=== PATIENT | male | born 1975 | race Caucasian/White ===

== ENCOUNTER 2017-06-21 14:37 | Emergency (ER) | payer BC ==
--- NOTE | 2017-06-21 15:57 | ER Document Report ---
ED Medical Screen (RME) - General Chief Complaint: Chest Pain Stated Complaint: CHEST PAIN Time Seen by Provider: 06/21/17 15:45 Mode of Arrival: Ambulatory Information source: Patient Notes: 41-year-old male resents with complaints of chest pressure sensation of now 1-2 hour duration. Patient denies any previous similar episodes notes tingling sensation in the hands. Denies any diaphoresis. Patient denies any previous similar chest pain I have greeted and performed a rapid initial assessment of this patient. A comprehensive ED assessment and evaluation of the patient, analysis of test results and completion of the medical decision making process will be conducted by additional ED providers. PHYSICAL EXAMINATION: GENERAL: Morbidly obese male HEAD: Atraumatic, normocephalic. EYES: Pupils equal round extraocular movements intact, conjunctiva are normal. ENT: Nares patent NECK: Normal range of motion LUNGS: No respiratory distress Musculoskeletal: Normal range of motion NEUROLOGICAL: Normal speech, normal gait. PSYCH: Normal mood, normal affect. SKIN: Warm, Dry, normal turgor, no rashes or lesions noted. TRAVEL OUTSIDE OF THE [place] IN LAST 30 DAYS: No - Related Data Allergies/Adverse Reactions: No Known Allergies Allergy (Verified 06/21/17 15:53) Past Medical History - Social History Chew tobacco use (# tins/day): No Frequency of alcohol use: None Drug Abuse: None Renal/ Medical History: Denies: Hx Peritoneal Dialysis Physical Exam - Vital signs Vitals: Temp Pulse Resp BP Pulse Ox 97.9 F 88 18 136/86 H 97 06/21/17 14:48 06/21/17 14:48 06/21/17 14:48 06/21/17 14:48 06/21/17 14:48 Course - Vital Signs Vital signs: Temp Pulse Resp BP Pulse Ox 97.9 F 88 18 136/86 H 97 06/21/17 14:48 06/21/17 14:48 06/21/17 14:48 06/21/17 14:48 06/21/17 14:48
[2017-06-21] MEDS ORDERED: ASPIRIN 81 MG TABLET, CHEWABLE PO ONE (16:26)
[2017-06-21 16:52] LABS: ABSOLUTE BASOPHILS # (AUTO) 0.1 10^3/uL (0.0-0.2); ABSOLUTE EOSINOPHILS # (AUTO) 0.2 10^3/uL (0.0-0.6); ABSOLUTE LYMPHOCYTES (AUTO) 2.7 10^3/uL (0.5-4.7); ABSOLUTE MONOCYTES (AUTO) 0.7 10^3/uL (0.1-1.4); ABSOLUTE NEUT (AUTO) 6.9 10^3/uL (1.7-8.2); BASOPHILS % (AUTO) 1.1 % (0-2); EOSINOPHILS % (AUTO) 1.9 % (0-6); HEMATOCRIT 45.3 % (37.9-51.0); HEMOGLOBIN 15.2 g/dL (13.5-17.0); LYMPHOCYTES % (AUTO) 25.4 % (13-45); MEAN CORPUSCULAR HEMOGLOBIN 29.4 pg (27.0-33.4); MEAN CORPUSCULAR HGB CONC 33.5 g/dL (32.0-36.0); MEAN CORPUSCULAR VOLUME 88 fl (80-97); MONOCYTES % (AUTO) 6.5 % (3-13); PLATELET COUNT 285 10^3/uL (150-450); RED BLOOD COUNT 5.15 10^6/uL (4.35-5.55); SEGMENTED NEUTROPHILS % (AUTO) 65.1 % (42-78); TOTAL CELLS COUNTED % (AUTO) 100 %; WHITE BLOOD COUNT 10.6 10^3/uL (4.0-10.5)
[2017-06-21 17:06] LABS: ALANINE AMINOTRANSFERASE 36 U/L (21-72); ALBUMIN 3.9 g/dL (3.5-5.0); ALKALINE PHOSPHATASE 77 U/L (38-126); ANION GAP 8 (5-19); ASPARTATE AMINO TRANSFERASE 20 U/L (17-59); BILIRUBIN,DIRECT 0.2 mg/dL (0.0-0.4); BILIRUBIN,TOTAL 0.2 mg/dL (0.2-1.3); BLOOD UREA NITROGEN 11 mg/dL (7-20); CALCIUM 9.3 mg/dL (8.4-10.2); CARBON DIOXIDE 24 mmol/L (22-30); CHLORIDE 109 mmol/L (98-107); CREATINE KINASE 93 U/L (55-170); GLUCOSE 81 mg/dL (75-110); POTASSIUM 4.4 mmol/L (3.6-5.0); SODIUM 140.6 mmol/L (137-145); TOTAL PROTEIN 7.2 g/dL (6.3-8.2)
[2017-06-21 17:17] LABS: CREATINE KINASE MB 0.54 ng/mL (<4.55); TROPONIN I < 0.012 ng/mL
--- NOTE | 2017-06-21 17:27 | RADIOLOGY REPORT (SQ) ---
EXAM DESCRIPTION: CHEST SINGLE VIEW COMPLETED DATE/TIME: 06/21/2017 5:19 pm REASON FOR STUDY: chest pain COMPARISON: None. EXAM PARAMETERS: NUMBER OF VIEWS: One view. TECHNIQUE: Single frontal radiographic view of the chest acquired. RADIATION DOSE: NA LIMITATIONS: None. FINDINGS: LUNGS AND PLEURA: No opacities, masses or pneumothorax. No pleural effusion. MEDIASTINUM AND HILAR STRUCTURES: No masses. Contour normal. HEART AND VASCULAR STRUCTURES: Heart normal in size. Normal vasculature. BONES: No acute findings. HARDWARE: None in the chest. OTHER: No other significant finding. IMPRESSION: NO ACUTE RADIOGRAPHIC FINDING IN THE CHEST. TECHNICAL DOCUMENTATION: JOB ID: [id number] [employer]- All Rights Reserved Reading location - IP/workstation name: [email or web address]
[2017-06-21] MEDS ORDERED: NITROGLYCERIN 0.4 MG/TAB 25 TAB/BOTTLE SL PRN (18:24)
--- NOTE | 2017-06-21 18:28 | ER Document Report ---
ED General - General Chief Complaint: Chest Pain Stated Complaint: CHEST PAIN Time Seen by Provider: 06/21/17 15:45 Mode of Arrival: Ambulatory Information source: Patient, Relative Notes: 41-year-old male with no reported past medical history presents with complaints of chest pain that started 5 hours prior to arrival. Patient states that he was at work and went outside to smoke when he experienced "crushing" chest pain. Patient states he had associated left hand "tingling" . He denies any associated shortness of breath, diaphoresis, nausea, lightheadedness. He denies any prior similar symptoms. Patient does have a [id number] smoking history and states he now "vapes". Denies any recent illnesses. He is not currently under any medical care. Pain is been constant since that time and is still present, but improved. Denies family history of early cardiac disease. TRAVEL OUTSIDE OF THE [place] IN LAST 30 DAYS: No - HPI Onset: Just prior to arrival Onset/Duration: Sudden Quality of pain: Fullness, Pressure, Other Severity: Moderate Associated symptoms: Chest pain. denies: Hurts to breath, Nausea, Vomiting, Shortness of breath, Weakness Exacerbated by: Denies Relieved by: Denies Similar symptoms previously: No Recently seen / treated by doctor: No - Related Data Allergies/Adverse Reactions: No Known Allergies Allergy (Verified 06/21/17 15:53) Past Medical History - General Information source: Patient - Social History Smoking Status: Current Every Day Smoker Chew tobacco use (# tins/day): No Frequency of alcohol use: None Drug Abuse: None Lives with: Spouse/Significant other Family History: Reviewed & Not Pertinent Patient has suicidal ideation: No Patient has homicidal ideation: No Renal/ Medical History: Denies: Hx Peritoneal Dialysis Review of Systems - Review of Systems Notes: Patient denies fever, chills, nausea, vomiting, abdominal pain, back pain, diarrhea, dysuria, cough, sore throat, extremity weakness. He does admit to chest pain. Constitutional: denies: Fever, Weakness EENT: denies: Blurred vision Cardiovascular: Chest pain. denies: Palpitations, Heart racing Respiratory: denies: Short of breath Gastrointestinal: denies: Abdominal pain Genitourinary: denies: Dysuria Musculoskeletal: denies: Back pain Skin: No symptoms reported Hematologic/Lymphatic: No symptoms reported Neurological/Psychological: denies: No symptoms reported Physical Exam - Vital signs Vitals: Temp Pulse Resp BP Pulse Ox 97.9 F 88 18 136/86 H 97 06/21/17 14:48 06/21/17 14:48 06/21/17 14:48 06/21/17 14:48 06/21/17 14:48 Interpretation: Normal. No: Tachycardic, Tachypneic, Febrile - General General appearance: Appears well, Alert In distress: None - HEENT Head: Normocephalic, Atraumatic Eyes: Normal Pupils: PERRL - Respiratory Respiratory status: No respiratory distress - Clear to auscultation bilaterally. Chest status: Nontender Breath sounds: Normal Chest palpation: Normal - Cardiovascular Rhythm: Regular - Regular rate and rhythm without murmur. Heart sounds: Normal auscultation Murmur: No Pulses: Normal: Radial - Abdominal Inspection: Normal - Nontender, normal bowel sounds. Distension: No distension Bowel sounds: Normal Tenderness: Nontender Organomegaly: No organomegaly - Back Back: Normal, Nontender - Extremities General upper extremity: Normal inspection, Nontender, Normal color, Normal ROM , Normal temperature General lower extremity: Normal inspection, Nontender, Normal color, Normal ROM , Normal temperature, Normal weight bearing. No: Olamide's sign Course - Re-evaluation Re-evalutation: Laboratory 06/21/17 06/21/17 06/21/17 16:23 16:23 16:23 WBC 10.6 H RBC 5.15 Hgb 15.2 Hct 45.3 MCV 88 MCH 29.4 MCHC 33.5 RDW 14.0 Plt Count 285 Seg Neutrophils % 65.1 Lymphocytes % 25.4 Monocytes % 6.5 Eosinophils % 1.9 Basophils % 1.1 Absolute Neutrophils 6.9 Absolute Lymphocytes 2.7 Absolute Monocytes 0.7 Absolute Eosinophils 0.2 Absolute Basophils 0.1 Sodium 140.6 Potassium 4.4 Chloride 109 H Carbon Dioxide 24 Anion Gap 8 BUN 11 Creatinine 0.57 Est GFR ( Amer) > 60 Est GFR (Non-Af Amer) > 60 Glucose 81 Calcium 9.3 Total Bilirubin 0.2 Direct Bilirubin 0.2 Neonat Total Bilirubin Not Reportable Neonat Direct Bilirubin Not Reportable Neonat Indirect Bili Not Reportable AST 20 ALT 36 Alkaline Phosphatase 77 Creatine Kinase 93 CK-MB (CK-2) 0.54 Troponin I < 0.012 Total Protein 7.2 Albumin 3.9 06/21/17 20:20 WBC RBC Hgb Hct MCV MCH MCHC RDW Plt Count Seg Neutrophils % Lymphocytes % Monocytes % Eosinophils % Basophils % Absolute Neutrophils Absolute Lymphocytes Absolute Monocytes Absolute Eosinophils Absolute Basophils Sodium Potassium Chloride Carbon Dioxide Anion Gap BUN Creatinine Est GFR ( Amer) Est GFR (Non-Af Amer) Glucose Calcium Total Bilirubin Direct Bilirubin Neonat Total Bilirubin Neonat Direct Bilirubin Neonat Indirect Bili AST ALT Alkaline Phosphatase Creatine Kinase CK-MB (CK-2) Troponin I < 0.012 Total Protein Albumin Chest X-Ray 06/21/17 16:26 IMPRESSION: NO ACUTE RADIOGRAPHIC FINDING IN THE CHEST. 06/21/17 21:14 Reevaluation patient states pain is gone. Not had any recurrence of pain. Delta troponin is negative. He And are comfortable with discharge home. After performing a Medical Screening Examination, I estimate there is LOW risk for RUPTURED ESOPHAGUS, PNEUMOTHORAX, PULMONARY EMBOLISM, ACUTE CORONARY SYNDROME, OR THORACIC AORTIC DISSECTION, thus I consider the discharge disposition reasonable. I have reevaluated this patient multiple times and no significant life threatening changes are noted. The patient and I have discussed the diagnosis and risks, and we agree with discharging home with close follow-up. We also discussed returning to the Emergency Department immediately if new or worsening symptoms occur. We have discussed the symptoms which are most concerning (e.g., bloody sputum, worsening pain or shortness of breath) that necessitate immediate return. 06/22/17 17:01 - Vital Signs Vital signs: Temp Pulse Resp BP Pulse Ox 97.9 F 88 20 123/94 H 95 06/21/17 20:45 06/21/17 14:48 06/21/17 21:01 06/21/17 21:01 06/21/17 21:01 - Laboratory Result Diagrams: 06/21/17 16:23 06/21/17 16:23 Laboratory results interpreted by me: 06/21/17 06/21/17 16:23 16:23 WBC 10.6 H Chloride 109 H - Diagnostic Test Radiology reviewed: Image reviewed, Reports reviewed - EKG Interpretation by Me EKG shows normal: Sinus rhythm Rate: Normal Rhythm: NSR Discharge - Discharge Clinical Impression: Tobacco abuse Chest pain Qualifiers: Chest pain type: unspecified Qualified Code(s): R07.9 - Chest pain, unspecified Condition: Good Disposition: HOME, SELF-CARE Instructions: Angina Episode ([facility]), Chest Pain of Unclear Cause ([facility]), Nitrates ([facility]) Forms: Smoking Cessation Education
--- NOTE | 2017-06-21 18:45 | EKG REPORT ---
SEVERITY:- NORMAL ECG - SINUS RHYTHM : Confirmed by: Ander Catherine MD 21-Jun-2017 18:44:55
[2017-06-21 21:07] VITALS: BP 123/94
== END 2017-06-21 21:33 | disposition home or self-care (01) ==
LOC: ER 14:37
DX: R07.9 Chest pain, unspecified (principal); R20.0 Anesthesia of skin; F17.200 Nicotine dependence, unspecified, uncomplicated
CPT/HCPCS: 36415; 71045; 80053; 82550; 82553; 84484; 85025; 93005; 93010; 99285

== ENCOUNTER 2017-12-13 07:44 | Emergency (ER) | payer BC ==
[2017-12-13 08:37] LABS: ABSOLUTE BASOPHILS # (AUTO) 0.1 10^3/uL (0.0-0.2); ABSOLUTE EOSINOPHILS # (AUTO) 0.1 10^3/uL (0.0-0.6); ABSOLUTE LYMPHOCYTES (AUTO) 1.7 10^3/uL (0.5-4.7); ABSOLUTE MONOCYTES (AUTO) 0.5 10^3/uL (0.1-1.4); ABSOLUTE NEUT (AUTO) 5.3 10^3/uL (1.7-8.2); EOSINOPHILS % (AUTO) 1.3 % (0-6); HEMATOCRIT 43.1 % (37.9-51.0); HEMOGLOBIN 14.8 g/dL (13.5-17.0); LYMPHOCYTES % (AUTO) 22.2 % (13-45); MEAN CORPUSCULAR HEMOGLOBIN 29.8 pg (27.0-33.4); MEAN CORPUSCULAR HGB CONC 34.4 g/dL (32.0-36.0); MEAN CORPUSCULAR VOLUME 87 fl (80-97); MONOCYTES % (AUTO) 6.2 % (3-13); PLATELET COUNT 241 10^3/uL (150-450); RED BLOOD COUNT 4.98 10^6/uL (4.35-5.55); RED CELL DISTRIBUTION WIDTH 14.3 % (11.5-14.0); SEGMENTED NEUTROPHILS % (AUTO) 69.3 % (42-78); TOTAL CELLS COUNTED % (AUTO) 100 %; WHITE BLOOD COUNT 7.7 10^3/uL (4.0-10.5)
[2017-12-13] MEDS ORDERED: ASPIRIN 81 MG TABLET, CHEWABLE PO ONE (08:54)
[2017-12-13 09:00] LABS: ALANINE AMINOTRANSFERASE 54 U/L (21-72); ALBUMIN 3.7 g/dL (3.5-5.0); ALKALINE PHOSPHATASE 70 U/L (38-126); ANION GAP 7 (5-19); ASPARTATE AMINO TRANSFERASE 33 U/L (17-59); BILIRUBIN,DIRECT 0.3 mg/dL (0.0-0.4); BILIRUBIN,TOTAL 0.7 mg/dL (0.2-1.3); BLOOD UREA NITROGEN 12 mg/dL (7-20); CALCIUM 9.4 mg/dL (8.4-10.2); CARBON DIOXIDE 28 mmol/L (22-30); CHLORIDE 106 mmol/L (98-107); CREATINE KINASE 138 U/L (55-170); GLUCOSE 106 mg/dL (75-110); POTASSIUM 5.1 mmol/L (3.6-5.0); SODIUM 141.3 mmol/L (137-145); TOTAL PROTEIN 7.1 g/dL (6.3-8.2)
[2017-12-13 09:12] LABS: CREATINE KINASE MB 0.75 ng/mL (<4.55)
[2017-12-13 09:13] LABS: TROPONIN I < 0.012 ng/mL
[2017-12-13 09:19] LABS: INTERNATIONAL RATION (INR) 0.94; PROTHROMBIN TIME 13.1 SEC (11.4-15.4)
[2017-12-13 09:20] LABS: PARTIAL THROMBOPLASTIN TIME 31.2 SEC (23.5-35.8)
[2017-12-13 09:22] LABS: D-DIMER 0.38 ug/mL (0.00-0.50)
--- NOTE | 2017-12-13 09:31 | RADIOLOGY REPORT (SQ) ---
EXAM DESCRIPTION: CHEST SINGLE VIEW COMPLETED DATE/TIME: 12/13/2017 9:20 am REASON FOR STUDY: chest pain COMPARISON: 06/21/2017. EXAM PARAMETERS: NUMBER OF VIEWS: One view. TECHNIQUE: Single frontal radiographic view of the chest acquired. RADIATION DOSE: NA LIMITATIONS: None. FINDINGS: LUNGS AND PLEURA: No opacities, masses or pneumothorax. No pleural effusion. MEDIASTINUM AND HILAR STRUCTURES: No masses. Contour normal. HEART AND VASCULAR STRUCTURES: Heart normal in size. Normal vasculature. BONES: No acute findings. HARDWARE: None in the chest. OTHER: No other significant finding. IMPRESSION: NO ACUTE RADIOGRAPHIC FINDING IN THE CHEST. TECHNICAL DOCUMENTATION: JOB ID: [id number] [employer]- All Rights Reserved Reading location - IP/workstation name: [email or web address]
--- NOTE | 2017-12-13 10:27 | EKG REPORT ---
SEVERITY:- NORMAL ECG - SINUS RHYTHM : Confirmed by: Hanny Patricia MD 13-Dec-2017 10:27:14
--- NOTE | 2017-12-13 12:54 | ER Document Report ---
ED Cardiac - General Chief Complaint: Chest Tightness Stated Complaint: CHEST PRESSURE Time Seen by Provider: 12/13/17 08:38 Mode of Arrival: Ambulatory Information source: Patient, Relative Notes: Patient is a 42-year-old morbidly obese white male comes emergency room complaining of chest tightness. Patient reports that he was at work around 6 AM this morning when he noticed a sudden onset of the anterior chest pain which was left-sided and tingling down both hands. Patient was told by coworkers that he looked like he was stressed out. He also states he gets this chest pain off and on occasionally. It never lasts more than a few minutes. Patient was seen here May of this past year for identically the same presentation for when he was at work the tingling down the left arm and anterior chest pain and he did follow-up with the PCP outpatient had blood work done but no stress test. Patient states that he told me he was okay. She has a family history to include only his father who had his first ME at age 52 and at age 57 of a massive heart attack. Patient has a heart score of approximately 3. He does have a history of a [id number] smoker and currently they vaps. 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 He denies any shortness of breath nausea or sweating when this occurred. TRAVEL OUTSIDE OF THE [place] IN LAST 30 DAYS: No - HPI Patient complains to provider of: Chest pain Was the onset of pain: Sudden When did pain begin: 6 AM Is the pain a: Chronic problem Chest pain location: Substernal, Pleuritic, Under breast. No: Back Quality of pain: Sharp, Stabbing Chest pain radiation location: Left arm, Right arm, None - Bilateral finger tingling Severity now: None Severity at worst: Moderate Pain level currently: 2 Chest pain precipitating factors: Physical Exertion Cardiac risk factors: Smoker, + Family history Positive cardiac history: No Associated symptoms: Anxiety Exacerbated by: Denies Relieved by: Nothing Similar symptoms previously: Yes Recently seen / treated by doctor: Yes - Related Data Allergies/Adverse Reactions: No Known Allergies Allergy (Verified 12/13/17 07:44) Past Medical History - General Information source: Patient, Relative - Social History Smoking Status: Current Every Day Smoker Cigarette use (# per day): Yes Smoking Education Provided: Yes Frequency of alcohol use: None Drug Abuse: None Lives with: Family Family History: Hyperlipidemia, Hypertension Patient has suicidal ideation: No Patient has homicidal ideation: No Renal/ Medical History: Denies: Hx Peritoneal Dialysis Past Surgical History: Reports: Hx Abdominal Surgery - mesh hernia repair, Hx Cholecystectomy Review of Systems - Review of Systems Constitutional: No symptoms reported EENT: No symptoms reported Cardiovascular: Chest pain Respiratory: No symptoms reported Gastrointestinal: No symptoms reported Genitourinary: No symptoms reported Male Genitourinary: No symptoms reported Skin: No symptoms reported Hematologic/Lymphatic: No symptoms reported Neurological/Psychological: No symptoms reported Physical Exam - Vital signs Vitals: Temp Pulse Resp BP Pulse Ox 98.1 F 91 18 144/77 H 95 12/13/17 07:55 12/13/17 07:55 12/13/17 07:55 12/13/17 07:55 12/13/17 07:55 Interpretation: Hypertensive - General General appearance: Appears well, Alert In distress: None - HEENT Head: Normocephalic, Atraumatic Eyes: Normal Conjunctiva: Normal - Respiratory Respiratory status: No respiratory distress Chest status: Nontender. No: No pleuritic chest pain, Pain with cough, Pain with deep breathing, Wounds, Accessory muscle use Breath sounds: Normal. No: Rales, Rhonchi, Stridor, Wheezing Chest palpation: Normal - Cardiovascular Rhythm: Regular Heart sounds: Normal auscultation Murmur: No - Abdominal Inspection: Normal Distension: No distension Bowel sounds: Normal Tenderness: Nontender Organomegaly: No organomegaly - Neurological Neuro grossly intact: Yes Cognition: Normal Orientation: AAOx4 Chan Coma Scale Eye Opening: Spontaneous Chan Coma Scale Verbal: Oriented Chan Coma Scale Motor: Obeys Commands Chan Coma Scale Total: 15 Speech: Normal - Psychological Associated symptoms: Normal affect, Normal mood - Skin Skin Temperature: Warm Skin Moisture: Dry Skin Color: Normal Skin Turgor: Elastic Course - Re-evaluation Re-evalutation: 12/13/17 12:58 I discussed the case with Dr. Joya given patient's heart score is about a 3 given that his chest pain does not last more than 2-3 minutes at most and given patient has no other comorbidities this point patient still be worked up outpatient. This does not appear to be any acute coronary artery syndrome. Patient has a PCP that he can follow-up with them we will highly suggest that he do so for outpatient stress testing regardless. But it does not appear to be an emergent situation at this time. I have also talked to patient about possibly starting him on stomach pill just in case this may be a week flexed type presentation as well. He is in agreement with this. states that she will get him to his primary care physician's office for a baseline stress test sometime this week. Also no patient's second set of enzymes were negative. 12/13/17 13:41 - Vital Signs Vital signs: Temp Pulse Resp BP Pulse Ox 98.1 F 91 17 125/80 97 12/13/17 07:55 12/13/17 07:55 12/13/17 12:01 12/13/17 12:01 12/13/17 12:01 - Laboratory Result Diagrams: 12/13/17 08:27 12/13/17 08:27 Laboratory results interpreted by me: 12/13/17 12/13/17 08:27 08:27 RDW 14.3 H Potassium 5.1 H Discharge - Discharge Clinical Impression: Atypical chest pain Chest pain Qualifiers: Chest pain type: unspecified Qualified Code(s): R07.9 - Chest pain, unspecified GERD (gastroesophageal reflux disease) Qualifiers: Esophagitis presence: without esophagitis Qualified Code(s): K21.9 - Gastro- esophageal reflux disease without esophagitis Condition: Stable Disposition: HOME, SELF-CARE Instructions: Chest Pain of Unclear Cause ([facility]), Reflux Disease (GERD) ([facility]) Additional Instructions: Home and rest today. Medications prescribed. As we discussed is highly important he follow-up with your primary care for a total and complete physical which would include blood work which would include lipid profile and thyroid profile. Also highly suggest a stress test for baseline. Since in her father at 57 of a heart attack highly important to you have a baseline stress test to be performed. Should you have any concerns or problems should you have any increased pain or discomfort return to ER for a recheck please Prescriptions: Omeprazole/Sodium Bicarbonate [Omeprazole-Bicarb 20-1,100 Cap] 1 each PO BID # 60 capsule Forms: Elevated Blood Pressure, Parent Work Note Referrals: CLIVE FARRELL MD [Primary Care Provider] - Follow up as needed
[2017-12-13 14:14] VITALS: BP 125/84
== END 2017-12-13 14:25 | disposition home or self-care (01) ==
LOC: ER 07:44
DX: R07.89 Other chest pain (principal); K21.9 Gastro-esophageal reflux disease without esophagitis; F17.210 Nicotine dependence, cigarettes, uncomplicated; Z90.49 Acquired absence of other specified parts of digestive tract
CPT/HCPCS: 36415; 71045; 80053; 82550; 82553; 83735; 84443; 84484; 85025; 85379; 85610; 85730; 93005; 93010; 99284

== ENCOUNTER 2018-10-24 19:11 | Emergency (ER) | payer BC ==
[2018-10-24 19:24] VITALS: BP 155/99
[2018-10-24 21:07] LABS: ABSOLUTE BASOPHILS # (AUTO) 0.1 10^3/uL (0.0-0.2); ABSOLUTE EOSINOPHILS # (AUTO) 0.2 10^3/uL (0.0-0.6); ABSOLUTE MONOCYTES (AUTO) 0.6 10^3/uL (0.1-1.4); ABSOLUTE NEUT (AUTO) 8.1 10^3/uL (1.7-8.2); BASOPHILS % (AUTO) 0.7 % (0-2); EOSINOPHILS % (AUTO) 1.4 % (0-6); HEMATOCRIT 45.4 % (37.9-51.0); HEMOGLOBIN 15.3 g/dL (13.5-17.0); MEAN CORPUSCULAR HEMOGLOBIN 29.5 pg (27.0-33.4); MEAN CORPUSCULAR HGB CONC 33.7 g/dL (32.0-36.0); MEAN CORPUSCULAR VOLUME 87 fl (80-97); MONOCYTES % (AUTO) 4.9 % (3-13); PLATELET COUNT 284 10^3/uL (150-450); RED BLOOD COUNT 5.19 10^6/uL (4.35-5.55); RED CELL DISTRIBUTION WIDTH 13.8 % (11.5-14.0); TOTAL CELLS COUNTED % (AUTO) 100 %
[2018-10-24 21:10] LABS: APPEARANCE,URINE CLEAR; BILIRUBIN,URINE NEGATIVE (NEGATIVE); COLOR,URINE YELLOW; GLUCOSE, URINE NEGATIVE (NEGATIVE); KETONES,URINE NEGATIVE (NEGATIVE); LEUKOCYTE ESTERASE,URINE NEGATIVE (NEGATIVE); NITRITE,URINE NEGATIVE (NEGATIVE); PROTEIN,URINE NEGATIVE (NEGATIVE); URINE SPECIFIC GRAVITY 1.015; UROBILINOGEN,URINE NEGATIVE mg/dL (<2.0)
[2018-10-24 21:27] LABS: ALBUMIN 4.1 g/dL (3.5-5.0); ALKALINE PHOSPHATASE 78 U/L (38-126); ANION GAP 8 (5-19); ASPARTATE AMINO TRANSFERASE 29 U/L (17-59); BILIRUBIN,DIRECT 0.2 mg/dL (0.0-0.4); BILIRUBIN,TOTAL 0.4 mg/dL (0.2-1.3); BLOOD UREA NITROGEN 8 mg/dL (7-20); CALCIUM 9.4 mg/dL (8.4-10.2); CARBON DIOXIDE 29 mmol/L (22-30); CHLORIDE 103 mmol/L (98-107); GLUCOSE 95 mg/dL (75-110); POTASSIUM 4.3 mmol/L (3.6-5.0); TOTAL PROTEIN 7.6 g/dL (6.3-8.2)
--- NOTE | 2018-10-24 23:25 | ER Document Report ---
ED Medical Screen (RME) - General Chief Complaint: Dizziness Stated Complaint: DIZZY Time Seen by Provider: 10/24/18 23:10 Primary Care Provider: CLIVE FARRELL MD [Primary Care Provider] - Follow up as needed Notes: Patient is a 43-year-old male presents to the emergency department with a chief complaint of dizziness. Patient states this morning he woke up with a "small "headache. Patient states that he just felt funny and like he was going to drop all day long. Patient states he did go to work but started to feel bad as the dizziness did not get any better. Patient denies chest pain or shortness of breath. Patient denies headache at this time. Patient denies numbness or tingling to upper or lower extremities. Patient denies urinary symptoms. Patient denies ear pain. Patient overall does not have any complaints besides the dizziness. Patient denies nausea, vomiting or diarrhea. Patient denies re cent fever or cold symptoms. Patient denies any past medical history. TRAVEL OUTSIDE OF THE [place] IN LAST 30 DAYS: No - Related Data Allergies/Adverse Reactions: No Known Allergies Allergy (Verified 10/24/18 19:16) Past Medical History - Social History Frequency of alcohol use: None Drug Abuse: Marijuana Renal/ Medical History: Denies: Hx Peritoneal Dialysis Past Surgical History: Reports: Hx Abdominal Surgery - mesh hernia repair, Hx Cholecystectomy Physical Exam - Vital signs Vitals: Temp Pulse Resp BP Pulse Ox 97.8 F 88 20 155/99 H 96 10/24/18 19:23 10/24/18 19:23 10/24/18 19:23 10/24/18 19:23 10/24/18 19:23 Interpretation: Hypertensive - Respiratory Respiratory status: No respiratory distress Course - Re-evaluation Re-evalutation: 10/24/18 23:25 I have greeted and performed a rapid initial assessment of this patient. A comprehensive ED assessment and evaluation of the patient, analysis of test results and completion of the medical decision making process will be conducted by additional ED providers. - Vital Signs Vital signs: Temp Pulse Resp BP Pulse Ox 97.8 F 88 20 155/99 H 96 10/24/18 19:23 10/24/18 19:23 10/24/18 19:23 10/24/18 19:23 10/24/18 19:23 - Laboratory Result Diagrams: 10/24/18 20:56 10/24/18 20:56 Laboratory results interpreted by me: 10/24/18 10/24/18 10/24/18 20:56 20:56 20:56 WBC 12.0 H Creatinine 0.50 L Urine Blood SMALL H Doctor's Discharge - Discharge Referrals: LCIVE FARRELL MD [Primary Care Provider] - Follow up as needed
--- NOTE | 2018-10-25 00:12 | EKG REPORT ---
SEVERITY:- NORMAL ECG - SINUS RHYTHM : Confirmed by: Hanny Patricia MD 25-Oct-2018 00:10:45
== END 2018-10-25 | disposition left against medical advice (07) ==
LOC: ER 19:11
DX: Z53.21 Procedure and treatment not carried out due to patient leaving prior to being seen by health care provider (principal); R42 Dizziness and giddiness; R51 Headache
CPT/HCPCS: 36415; 80053; 81001; 85025; 93005; 93010; 99281

== ENCOUNTER 2018-11-24 17:29 | Emergency (ER) | payer BC ==
[2018-11-24] MEDS ORDERED: ASPIRIN 81 MG TABLET, CHEWABLE PO ONE (17:41)
--- NOTE | 2018-11-24 17:45 | ER Document Report ---
ED Cardiac - General Chief Complaint: Chest Pain Stated Complaint: CHEST PAIN Time Seen by Provider: 11/24/18 17:42 Primary Care Provider: CLIVE FARRELL MD [Primary Care Provider] - Follow up as needed Mode of Arrival: Ambulatory Information source: Patient TRAVEL OUTSIDE OF THE [place] IN LAST 30 DAYS: No - HPI Notes: Patient complains of left-sided chest pain with left hand numbness. Patient states that started approximate 40 minutes for arrival. It is gradually improving. He did get 4 aspirin in route. He states on arrival here is approximately 6 out of 10. The pain does radiate to the left. Nothing makes it better or worse. It is moderate in intensity. It is an aching pressure sensation. He states he has been under stress. Patient states he does not smoke but he does vape. He was vaping today. He states he is in the no previous cardiac evaluation. He does have a family doctor. He states he has not had no nausea or sweating. No significant shortness of breath. No cough cold or congestion. - Related Data Allergies/Adverse Reactions: No Known Allergies Allergy (Verified 10/24/18 19:16) Past Medical History - General Information source: Patient - Social History Smoking Status: Current Every Day Smoker Chew tobacco use (# tins/day): No Frequency of alcohol use: None Drug Abuse: Marijuana Family History: Hyperlipidemia, Hypertension Patient has suicidal ideation: No Patient has homicidal ideation: No Renal/ Medical History: Denies: Hx Peritoneal Dialysis Past Surgical History: Reports: Hx Abdominal Surgery - mesh hernia repair, Hx Cholecystectomy Review of Systems - Review of Systems Constitutional: denies: Chills, Fever Cardiovascular: Chest pain. denies: Syncope Respiratory: denies: Cough, Short of breath Gastrointestinal: denies: Abdominal pain, Vomiting -: Yes All other systems reviewed and negative Physical Exam - Vital signs Vitals: Temp 98 F 11/24/18 17:39 Interpretation: Normal - General General appearance: Appears well, Alert - HEENT Head: Normocephalic, Atraumatic Eyes: Normal Pupils: PERRL - Respiratory Respiratory status: No respiratory distress Chest status: Nontender Breath sounds: Normal Chest palpation: Normal - Cardiovascular Rhythm: Regular Heart sounds: Normal auscultation Murmur: No - Abdominal Inspection: Normal Distension: No distension Bowel sounds: Normal Tenderness: Nontender Organomegaly: No organomegaly - Back Back: Normal, Nontender - Extremities General upper extremity: Normal inspection, Nontender, Normal color, Normal ROM, Normal temperature General lower extremity: Normal inspection, Nontender, Normal color, Normal ROM, Normal temperature, Normal weight bearing. No: Olamide's sign - Neurological Neuro grossly intact: Yes Cognition: Normal Orientation: AAOx4 Chan Coma Scale Eye Opening: Spontaneous [place] Coma Scale Verbal: Oriented Chan Coma Scale Motor: Obeys Commands [place] Coma Scale Total: 15 Speech: Normal Motor strength normal: LUE, RUE, LLE, RLE Sensory: Normal - Psychological Associated symptoms: Normal affect, Normal mood - Skin Skin Temperature: Warm Skin Moisture: Dry Skin Color: Normal Course - Re-evaluation Re-evalutation: 11/24/18 18:23 Patient reevaluated just now. He states he still does have some chest pain. He has no shortness of breath. Is not sweaty or nauseous. His work-up is unremarkable. His HEART Score is 2. I believe patient is safe to do outpatient work-up. I have encouraged him to contact his primary physician as soon as po ssible to schedule an outpatient cardiac stress test. 11/24/18 18:34 Repeat EKG was also performed which shows no significant changes. - Vital Signs Vital signs: Temp Pulse Resp BP Pulse Ox 98 F 99 11/24/18 17:39 11/24/18 17:43 - Laboratory Result Diagrams: 11/24/18 17:38 11/24/18 17:38 Laboratory results interpreted by me: 11/24/18 11/24/18 17:38 17:38 WBC 10.7 H Creatine Kinase 397 H - EKG Interpretation by Ok EKG shows normal: Sinus rhythm Rate: Normal - 89 Rhythm: NSR [place]/QRS: No: Right axis deviation, Left axis deviation Additional EKG results interpreted by ri: 11/24/18 18:34 Second EKG done at 1831 shows patient have a sinus rhythm. Rate is 95. [place] is normal. No ischemic changes. Discharge - Discharge Clinical Impression: Atypical chest pain Condition: Stable Disposition: HOME, SELF-CARE Instructions: Aspirin (Cardiac) ([facility]), Chest Pain of Unclear Cause ([facility]) Additional Instructions: Please call your family physician as soon as possible to discuss cardiac stress testing Forms: Return to Work Referrals: CLIVE FARRELL MD [Primary Care Provider] - Follow up as needed
[2018-11-24 17:49] LABS: ABSOLUTE BASOPHILS # (AUTO) 0.1 10^3/uL (0.0-0.2); ABSOLUTE EOSINOPHILS # (AUTO) 0.1 10^3/uL (0.0-0.6); ABSOLUTE LYMPHOCYTES (AUTO) 2.3 10^3/uL (0.5-4.7); ABSOLUTE MONOCYTES (AUTO) 0.6 10^3/uL (0.1-1.4); ABSOLUTE NEUT (AUTO) 7.5 10^3/uL (1.7-8.2); BASOPHILS % (AUTO) 0.9 % (0-2); EOSINOPHILS % (AUTO) 1.3 % (0-6); HEMATOCRIT 42.7 % (37.9-51.0); HEMOGLOBIN 14.5 g/dL (13.5-17.0); LYMPHOCYTES % (AUTO) 21.9 % (13-45); MEAN CORPUSCULAR HEMOGLOBIN 29.5 pg (27.0-33.4); MEAN CORPUSCULAR HGB CONC 33.9 g/dL (32.0-36.0); MEAN CORPUSCULAR VOLUME 87 fl (80-97); MONOCYTES % (AUTO) 5.3 % (3-13); PLATELET COUNT 265 10^3/uL (150-450); RED BLOOD COUNT 4.91 10^6/uL (4.35-5.55); RED CELL DISTRIBUTION WIDTH 13.5 % (11.5-14.0); SEGMENTED NEUTROPHILS % (AUTO) 70.6 % (42-78); TOTAL CELLS COUNTED % (AUTO) 100 %; WHITE BLOOD COUNT 10.7 10^3/uL (4.0-10.5)
[2018-11-24 18:08] LABS: ALBUMIN 4.1 g/dL (3.5-5.0); ALKALINE PHOSPHATASE 63 U/L (38-126); ANION GAP 10 (5-19); ASPARTATE AMINO TRANSFERASE 52 U/L (17-59); BILIRUBIN,DIRECT 0.3 mg/dL (0.0-0.4); BILIRUBIN,TOTAL 0.7 mg/dL (0.2-1.3); BLOOD UREA NITROGEN 12 mg/dL (7-20); CALCIUM 9.6 mg/dL (8.4-10.2); CARBON DIOXIDE 25 mmol/L (22-30); CHLORIDE 103 mmol/L (98-107); CREATINE KINASE 397 U/L (55-170); GLUCOSE 107 mg/dL (75-110); POTASSIUM 4.2 mmol/L (3.6-5.0); TOTAL PROTEIN 7.4 g/dL (6.3-8.2)
[2018-11-24 18:19] LABS: CREATINE KINASE MB 1.04 ng/mL (<4.55)
[2018-11-24 18:21] LABS: TROPONIN I < 0.012 ng/mL
[2018-11-24 18:38] VITALS: BP 137/85
--- NOTE | 2018-11-25 23:27 | EKG REPORT ---
SEVERITY:- OTHERWISE NORMAL ECG - SINUS TACHYCARDIA : Confirmed by: Libia Bauer 25-Nov-2018 23:27:22
--- NOTE | 2018-11-25 23:27 | EKG REPORT ---
SEVERITY:- NORMAL ECG - SINUS RHYTHM : Confirmed by: Libia Bauer 25-Nov-2018 23:27:12
== END 2018-11-24 18:43 | disposition home or self-care (01) ==
LOC: ER 17:29
DX: R07.89 Other chest pain (principal); R20.0 Anesthesia of skin; F17.290 Nicotine dependence, other tobacco product, uncomplicated
CPT/HCPCS: 36415; 80053; 82550; 82553; 84484; 85025; 93005; 93010; 99285

== ENCOUNTER → 2019-09-28 | Outpatient (CLI) | payer BC ==
--- NOTE | 2019-09-28 15:29 | RADIOLOGY REPORT (SQ) ---
EXAM DESCRIPTION: BARIUM SWALLOW ESOPHAGUS IMAGES COMPLETED DATE/TIME: 09/28/2019 8:58 am REASON FOR STUDY: DYSPHAGIA, UNSPECIFIED R13.10 DYSPHAGIA, UNSPECIFIED COMPARISON: None. TECHNIQUE: Under fluoroscopic guidance, patient ingested effervescent granules followed by thick and thin barium. Fluoroscopic spot images and routine radiographic images acquired and stored on PACS. 12 MM BARIUM TABLET GIVEN: Yes. No significant delay in passage. LIMITATIONS: None. FLUOROSCOPY TIME: FLUORO TIME: 2.4 minutes of fluoroscopy was used 10 images saved to PACS. FINDINGS: NEUROMUSCULAR COORDINATION OF SWALLOW: Normal. No aspiration. ESOPHAGEAL MOTILITY: Slow and weak primary peristalsis. Stasis of barium throughout the esophagus. N o esophageal spasm. ESOPHAGEAL MUCOSA: Normal mucosa without masses or ulceration. GASTRO-ESOPHAGEAL JUNCTION: Small sliding hiatal hernia with mild gastroesophageal reflux. Mild narr owing of the GE junction that does not delay passage of the 12 mm barium tablet. NON-GI TRACT STRUCTURES: No significant finding. OTHER: No other significant finding. IMPRESSION: ESOPHAGEAL DYSMOTILITY. SMALL SLIDING HIATAL HERNIA WITH MILD GASTROESOPHAGEAL REFLUX. COMMENT: Quality ID [id number]: Final reports for procedures using fluoroscopy that document radiation exp osure indices, or exposure time and number of fluorographic images (if radiation exposure indices are not available) TECHNICAL DOCUMENTATION: JOB ID: [id number] 2010 [email or web address]- All Rights Reserved Reading location - IP/workstation name: [email or web address]
== END ==
LOC: RAD 08:16
PROVIDERS: ATTEND Nurse Practitioner Family
DX: R13.10 Dysphagia, unspecified (principal)
CPT/HCPCS: 74220

== ENCOUNTER 2019-10-19 12:58 | Emergency (ER) | payer OTHER, BC ==
[2019-10-19 13:05] VITALS: BP 138/81
--- NOTE | 2019-10-19 15:09 | ER Document Report ---
ED Extremity Problem, Lower - General Chief Complaint: Knee Pain Stated Complaint: LEG PAIN Time Seen by Provider: 10/19/19 14:58 Primary Care Provider: ZULEIMA ASIF NP [Primary Care Provider] - Follow up as needed Mode of Arrival: Wheelchair Information source: Patient Notes: Patient is a 44-year-old male comes emergency room complaint of left knee pain. Patient states just prior to arrival he was ambulatory and a went to change directions twisted his knee and he felt severe pain and heard a loud pop in his left knee. Patient states that he has a history of left knee pain and problems in the past from years ago when he used to do martial arts. But whenever it would go out on its own he could work it back in. Today has been unable to ambulate after the incident occurred. He is having difficulty and pain with some numbness and tingling in his foot. Patient denies any other medical problems. Currently takes no medications. 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. TRAVEL OUTSIDE OF THE [place] IN LAST 30 DAYS: No - HPI Patient complains to provider of: Injury, Pain Location: Knee Occurred: Just prior to arrival Where: Public place Onset/Duration: Sudden, Worse Quality of pain: Sharp, Stabbing, Throbbing Severity: Severe Pain Level: 4 Context: Twisted Recent injury: Yes Associated symptoms: Unable to bear weight Exacerbated by: Movement, Walking Relieved by: Elevation, Rest - Related Data Allergies/Adverse Reactions: No Known Allergies Allergy (Verified 10/24/18 19:16) Past Medical History - Social History Smoking Status: Current Every Day Smoker Frequency of alcohol use: None Drug Abuse: None Lives with: Family Family History: Reviewed & Not Pertinent, Hyperlipidemia, Hypertension Renal/ Medical History: Denies: Hx Peritoneal Dialysis Past Surgical History: Reports: Hx Abdominal Surgery - mesh hernia repair, Hx Cholecystectomy Review of Systems - Review of Systems Constitutional: No symptoms reported EENT: No symptoms reported Cardiovascular: No symptoms reported Respiratory: No symptoms reported Gastrointestinal: No symptoms reported Genitourinary: No symptoms reported Male Genitourinary: No symptoms reported Musculoskeletal: See HPI, Joint pain, Joint swelling Skin: No symptoms reported Hematologic/Lymphatic: No symptoms reported Neurological/Psychological: No symptoms reported -: Yes All other systems reviewed and negative Physical Exam - Vital signs Vitals: Temp Pulse Resp BP Pulse Ox 98.4 F 90 18 138/81 H 95 10/19/19 13:03 10/19/19 13:03 10/19/19 13:03 10/19/19 13:03 10/19/19 13:03 Interpretation: Hypertensive - Notes Notes: PHYSICAL EXAMINATION: GENERAL: Patient is well-nourished well-developed 44-year-old male who is in no apparent distress on physical exam this afternoon however he appears to be uncomfortable. HEAD: Atraumatic, normocephalic. LUNGS: Breath sounds clear to auscultation bilaterally and equal. No wheezes rales or rhonchi. HEART: Regular rate and rhythm without murmurs Musculoskeletal: In triage patient is in a wheelchair with his left leg extended out to the side. He is in some tight elastic type jeans. He is only able to pull his pant leg up to just above the knee. Inspection does not show that there to be a patella dislocation. Patient does have point tenderness on the lateral aspect of the knee. He has no laxity in any direction at this time anterior drawer is negative. Vascular exam currently is normal.. NEUROLOGICAL: Normal speech, normal gait. Normal sensory, motor exams PSYCH: Normal mood, normal affect. SKIN: Warm, Dry, normal turgor, no rashes or lesions noted. Course - Re-evaluation Re-evalutation: 10/19/19 16:15 Patient's x-ray came back showing an avulsion fracture of the tibial plateau which they state is coincides with a ACL tear. Patient was placed in a knee immobilizer that actually fit fairly decent. He has been placed on crutches and nonweightbearing as much as possible. I am giving the name of the orthopedic doctor on-call today and he is to call that office sometime tomorrow for further intervention. - Vital Signs Vital signs: Temp Pulse Resp BP Pulse Ox 98.4 F 90 18 138/81 H 95 10/19/19 14:58 10/19/19 13:03 10/19/19 13:03 10/19/19 13:03 10/19/19 13:03 Procedures - Immobilization Left Knee Time completed: 16:15 Pre-Proc Neuro Vasc Exam: Normal Immobilizer type: Knee immobilizer Performed by: PCT Post-Proc Neuro Vasc Exam: Normal Alignment checked and good: Yes Discharge - Discharge Clinical Impression: Internal derangement of left knee ACL tear Qualifiers: Encounter type: initial encounter Laterality: left Qualified Code(s): S83.512A - Sprain of anterior cruciate ligament of left knee, initial encounter Condition: Stable Disposition: HOME, SELF-CARE Instructions: Use of Crutches ([facility]), Ice & Elevation ([facility]), Suspected Internal Knee Injury ([facility]), Knee Immobilizing Splint ([facility]), Oral Narcotic Medication ([facility]) Additional Instructions: As we indicated it appears that you have an ACL tear/internal derangement of the left knee. Also when you get this type of a tear you also probably have a: Morbid problem with meniscus as well. So you need to have support in that knee at all times. We placed you in a knee immobilizer that is the best we have here so you need to see the orthopedist soon as possible. As we discussed I would even sleep with it on but loosen it up. I would ice it down 2-3 times a day. You can take ibuprofen Tylenol for pain and discomfort. Should you have any other concerns you can return to ER for reevaluation. Forms: Elevated Blood Pressure, Return to Work Referrals: ZULEIMA ASIF NP [Primary Care Provider] - Follow up as needed ABISAI PABON DO [ACTIVE STAFF] - Follow up as needed
--- NOTE | 2019-10-19 15:45 | RADIOLOGY REPORT (SQ) ---
EXAM DESCRIPTION: KNEE LEFT 3 VIEWS IMAGES COMPLETED DATE/TIME: 10/19/2019 3:32 pm REASON FOR STUDY: knee popped COMPARISON: None. NUMBER OF VIEWS: Two views. TECHNIQUE: AP and lateral radiographic images acquired of the left knee. LIMITATIONS: None. FINDINGS: MINERALIZATION: Normal. BONES: Avulsion injury of the lateral tibial plateau. This may represent a segond fracture. Clinica l correlation is needed. JOINT: No effusion. SOFT TISSUES: No soft tissue swelling. No radio-opaque foreign body. OTHER: No other significant finding. IMPRESSION: A avulsion injury of the lateral tibial plateau as described. This can be associated wi th ACL injury. No joint effusion. TECHNICAL DOCUMENTATION: JOB ID: [id number] 2010 [employer]- All Rights Reserved Reading location - IP/workstation name: [email or web address]
== END 2019-10-19 17:00 | disposition home or self-care (01) ==
LOC: ER 12:58
DX: S89.82XA Other specified injuries of left lower leg, initial encounter (principal); S83.512A Sprain of anterior cruciate ligament of left knee, initial encounter; X50.0XXA Overexertion from strenuous movement or load, initial encounter; Y99.0 Civilian activity done for income or pay; F17.200 Nicotine dependence, unspecified, uncomplicated
CPT/HCPCS: 99283

== ENCOUNTER → 2019-11-13 | Outpatient (CLI) | payer OTHER, BC ==
--- NOTE | 2019-11-13 10:11 | EKG REPORT ---
SEVERITY:- NORMAL ECG - SINUS RHYTHM : Confirmed by: Libia Bauer 13-Nov-2019 10:10:30
[2019-11-13 10:43] LABS: ABSOLUTE EOSINOPHILS # (AUTO) 0.2 10^3/uL (0.0-0.6); ABSOLUTE LYMPHOCYTES (AUTO) 1.7 10^3/uL (0.5-4.7); ABSOLUTE MONOCYTES (AUTO) 0.4 10^3/uL (0.1-1.4); ABSOLUTE NEUT (AUTO) 4.2 10^3/uL (1.7-8.2); BASOPHILS % (AUTO) 0.5 % (0-2); EOSINOPHILS % (AUTO) 2.5 % (0-6); HEMATOCRIT 45.1 % (37.9-51.0); HEMOGLOBIN 15.3 g/dL (13.5-17.0); LYMPHOCYTES % (AUTO) 26.4 % (13-45); MEAN CORPUSCULAR HEMOGLOBIN 29.2 pg (27.0-33.4); MEAN CORPUSCULAR HGB CONC 33.9 g/dL (32.0-36.0); MEAN CORPUSCULAR VOLUME 86 fl (80-97); MONOCYTES % (AUTO) 5.8 % (3-13); PLATELET COUNT 245 10^3/uL (150-450); RED BLOOD COUNT 5.24 10^6/uL (4.35-5.55); RED CELL DISTRIBUTION WIDTH 13.7 % (11.5-14.0); SEGMENTED NEUTROPHILS % (AUTO) 64.8 % (42-78); TOTAL CELLS COUNTED % (AUTO) 100 %; WHITE BLOOD COUNT 6.5 10^3/uL (4.0-10.5)
[2019-11-13 11:03] LABS: ANION GAP 7 (5-19); BLOOD UREA NITROGEN 8 mg/dL (7-20); CALCIUM 8.9 mg/dL (8.4-10.2); CARBON DIOXIDE 26 mmol/L (22-30); CHLORIDE 106 mmol/L (98-107); GLUCOSE 104 mg/dL (75-110); POTASSIUM 4.5 mmol/L (3.6-5.0)
--- NOTE | 2019-11-13 12:19 | RADIOLOGY REPORT (SQ) ---
EXAM DESCRIPTION: CHEST PA/LATERAL IMAGES COMPLETED DATE/TIME: 11/13/2019 9:50 am REASON FOR STUDY: PRE-OP COMPARISON: None. EXAM PARAMETERS: NUMBER OF VIEWS: two views TECHNIQUE: Digital Frontal and Lateral radiographic views of the chest acquired. RADIATION DOSE: NA LIMITATIONS: none FINDINGS: LUNGS AND PLEURA: No opacities, masses or pneumothorax. No pleural effusion. MEDIASTINUM AND HILAR STRUCTURES: No masses or contour abnormalities. HEART AND VASCULAR STRUCTURES: Heart normal size. No evidence for failure. BONES: No acute findings. HARDWARE: None in the chest. OTHER: No other significant finding. IMPRESSION: NO SIGNIFICANT RADIOGRAPHIC FINDING IN THE CHEST. TECHNICAL DOCUMENTATION: JOB ID: [id number] 2010 [employer]- All Rights Reserved Reading location - IP/workstation name: [email or web address]
== END ==
LOC: OD 09:22
PROVIDERS: ATTEND Orthopaedic Surgery
DX: Z01.812 Encounter for preprocedural laboratory examination (principal); Z01.811 Encounter for preprocedural respiratory examination; S83.512A Sprain of anterior cruciate ligament of left knee, initial encounter; S83.282A Other tear of lateral meniscus, current injury, left knee, initial encounter; X58.XXXA Exposure to other specified factors, initial encounter; Y93.9 Activity, unspecified; Y92.9 Unspecified place or not applicable; M25.562 Pain in left knee
CPT/HCPCS: 36415; 71046; 80048; 85025; 93005; 93010

== ENCOUNTER → 2020-02-04 | Outpatient (CLI) | payer OTHER ==
--- NOTE | 2020-02-04 18:45 | RADIOLOGY REPORT (SQ) ---
EXAM DESCRIPTION: VENOUS UNILATERAL LOWER IMAGES COMPLETED DATE/TIME: 02/04/2020 4:50 pm REASON FOR STUDY: LLE PAIN M79.662 PAIN IN LEFT LOWER LEG COMPARISON: None. TECHNIQUE: Dynamic and static watters scale and color images acquired of the left leg venous system. Se lected spectral images acquired with additional compression and augmentation maneuvers. The contralat eral common femoral vein and saphenofemoral junction were also imaged. Images stored on PACS. LIMITATIONS: None. FINDINGS: COMMON FEMORAL: Normal phasicity, compression and augmentation. No visualized echogenic ma terial on watters scale. No defects on color images. FEMORAL: Normal compression and augmentation. No visualized echogenic material on watters scale. No defe cts on color images. POPLITEAL: Normal compression, augmentation. No visualized echogenic material on watters scale. No defec ts on color images. CALF VESSELS: Normal compression, augmentation. No visualized echogenic material on watters scale. No de fects on color images. GSV and SSV: Normal compression, augmentation. No visualized echogenic material on watters scale. No def ects on color images. ANY DEEP VENOUS INSUFFICIENCY: Not evaluated. ANY EVIDENCE OF POPLITEAL CYST: No. OTHER: No other significant finding. CONTRALATERAL COMMON FEMORAL VEIN AND SAPHENOFEMORAL JUNCTION: Normal phasicity, compression and augmentation. No visualized echogenic material on watters scale. No de fects on color images. IMPRESSION: NO EVIDENCE OF DVT OR SVT IN THE LEFT LEG. TECHNICAL DOCUMENTATION: JOB ID: [id number] 2010 [employer]- All Rights Reserved Reading location - IP/workstation name: [email or web address]
--- OUTSIDE RECORDS SUMMARY | 2020-02-05 15:45 | XMS REPORT ---
:1975 [facility] [address] [place] [address] Care Team Providers Name Role Phone Corie Aguirre Primary Care Physician Unavailable Carla Attending Clinician Unavailable Allergies, Adverse Reactions, Alerts This patient has no known allergies or adverse reactions. Medications Ordered Filled Start Stop Current Ordering Indication Dosage Frequency Signature Comments Components Medication Medication Date Date Medication? Clinician (SIG) Name Name diphenoxyla No diphenoxyl te-atropine ate-atropi 2.5 ne 2.5 mg-0.025 mg mg-0.025 tablet mg tablet ibuprofen No 1 Q8H ibuprofen 400 mg 400 mg tablet Take tablet 1 tablet Take 1 every 8 tablet hours by every 8 oral route hours by as needed. oral route as needed. hydrocodone No hydrocodon 10 e 10 mg-chlorphe mg-chlorph niramine 8 eniramine mg/5 mL 8 mg/5 mL oral susp oral susp extend.rel extend.rel 12hr 12hr [employer] [place] 5 No 1 Q6H [employer] 5 mg-325 mg mg-325 mg tablet Take tablet 1 tablet Take 1 every 6 tablet hours by every 6 oral route. hours by oral route. tramadol 50 No tramadol mg tablet 50 mg tablet ibuprofen No 2 TID ibuprofen 200 mg 200 mg tablet Take tablet 2 tablets 3 Take 2 times a day tablets 3 by oral times a route as day by needed. oral route as needed. alprazolam No alprazolam 1 mg tablet 1 mg tablet azithromyci No azithromyc n 250 mg in 250 mg tablet tablet Problems Condition Condition Condition Status Onset Resolution Last Treatin g Comments Name Details Category Date Date Treatment Clinician Date Muscle Muscle Problem Active weakness Weakness 12-14 00:00: 00 Impairment Impairment Problem Active of balance of Balance 12-14 00:00: 00 Antalgic Antalgic Problem Active gait Gait 12-14 00:00: 00 Stiffness Stiffness Problem Active of left of Left 9-22 knee Knee 00:00: 00 Sprain of Sprain of Problem Active anterior Anterior 10-25 cruciate Cruciate 00:00: ligament of Ligament of 00 knee Knee Pain in Pain in Problem Active left knee Left Knee 10-25 00:00: 00 Procedures Procedure Date / Time Performed Performing Clinician Marysol martinez RADIOLOGIC EXAM, KNEE; COMPLETE, 2019-12-10 00:00:00 OR MORE VIEWS [place], Arthroscopic Assisted 2019-11-24 00:00:00 Reconstruction with Autograft (Surg) RADIOLOGIC EXAM, KNEE; COMPLETE, 2019-11-12 00:00:00 OR MORE VIEWS MRI, knee, w/o contrast 2019-10-26 00:00:00 Established patient office or other 2019-08-12 09:57:00 outpatient visit, typically 15 minutes Routine EKG using at least 12 leads 2019-05-22 13:45:00 including interpretation and report Established patient office or other 2019-05-22 13:45:00 outpatient visit, typically 15 minutes Detection test for Strep 2019-05-22 13:45:00 (Streptococcus, group A) Detection test for influenza virus 2019-05-22 13:45:00 Established patient office or other 2019-05-07 14:18:00 outpatient visit, typically 15 minutes HGB GLYCOSYLATED 2018-11-20 10:28:00 MOST RECENT HEMOGLOBIN A1C LEVEL LT 2018-11-20 10:28:00 7.0% OFFICE OUTPT EST15 MIN 2018-11-20 10:28:00 OFFICE OUTPT EST15 MIN 2018-03-10 10:25:00 HANDLG\T\/OR CONVEY OF SPEC FOR TR 2018-03-10 10:25:00 OFFICE TO LAB OFFICE OUTPT EST15 MIN 2018-03-04 14:56:00 HANDLG\T\/OR CONVEY OF SPEC FOR TR 2018-03-04 14:56:00 OFFICE TO LAB URNLS DIP STICK/TABLET RGNT 2017-08-12 09:26:00 NON-AUTO W/O BLAYNE HGB GLYCOSYLATED 2017-08-12 09:26:00 MOST RECENT HEMOGLOBIN A1C LEVEL LT 2017-08-12 09:26:00 7.0% 1ST COMPRE PREV MED E/M NEW PT 2017-08-12 09:26:00 18-39 Hernia Repair Gallbladder Surgery Results Test Description Test Time Test Comments Text Results Atomic Results Result Comments SARS coronavirus 2 RNA [Presence] in Respiratory speci men by 2019-11-18 00:00:00 MOISES with probe detection Test Item Value Reference Range Comments SARS coronavirus 2 RNA [Presence] in Respiratory specimen no t detected not detected by MOISES with probe detection (test code = 96372-7) [id number] 00:00:00 Test Item Value Reference Range Comments inpatient (test code = inpatient) comment CBC W Differential panel, method unspecified - [id number] 00:00:00 Test Item Value Reference Range Comments white blood count (test code = white blood 6.5 10 3/uL 4.0-1 0.5 count) red blood count (test code = red blood count) 5.24 10 6/uL 4. 35-5.55 hemoglobin (test code = hemoglobin) 15.3 g/dL 13.5-17.0 hematocrit (test code = hematocrit) 45.1 % 37.9-51.0 mean corpuscular volume (test code = mean 86 fL 80-97 corpuscular volume) mean corpuscular hemoglobin (test code = mean 29.2 pg 27 .0-33.4 corpuscular hemoglobin) mean corpuscular HGB conc (test code = mean 33.9 g/dL 32.0 -36.0 corpuscular HGB conc) red cell distribution width (test code = red 13.7 % 11. 5-14.0 cell distribution width) platelet count (test code = platelet count) 245 10 3/uL 150- 450 segmented neutrophils % (auto) (test code = 64.8 % 42-7 8 segmented neutrophils % (auto)) lymphocytes % (auto) (test code = lymphocytes % 26.4 % 13-45 (auto)) monocytes % (auto) (test code = monocytes % 5.8 % 3-13 (auto)) eosinophils % (auto) (test code = eosinophils % 2.5 % 0-6 (auto)) basophils % (auto) (test code = basophils % 0.5 % 0-2 (auto)) absolute neut (auto) (test code = absolute neut 4.2 10 3/uL 1.7-8.2 (auto)) absolute lymphocytes (auto) (test code = 1.7 10 3/uL 0.5-4.7 absolute lymphocytes (auto)) absolute monocytes (auto) (test code = absolute 0.4 10 3/uL 0.1-1.4 monocytes (auto)) absolute eosinophils # (auto) (test code = 0.2 10 3/uL 0.0-0 .6 absolute eosinophils # (auto)) absolute basophils # (auto) (test code = 0.0 10 3/uL 0.0-0.2 absolute basophils # (auto)) basic metabolic [id number] 00:00:00 Test Item Value Reference Range Comments calcium (test code = calcium) 8.9 mg/dL 8.4-10.2 glucose (test code = glucose) 104 mg/dL 75-110 blood urea nitrogen (test code = blood urea 8 mg/dL 7-20 nitrogen) creatinine result (test code = creatinine 0.53 mg/dL 0.52-1 .25 result) eGFR,non (test code = eGFR,non > 60 >60 ) eGFR, (test code = eGFR, > 60 >60 ivorian) potassium (test code = potassium) 4.5 mmol/L 3.6-5.0 chloride (test code = chloride) 106 mmol/L 98-107 carbon dioxide (test code = carbon dioxide) 26 mmol/L 22-3 0 sodium (test code = sodium) 139.3 mmol/L 137-145 anion gap (test code = anion gap) 7 5-19 [facility]14 ([id number]) [id number] 09:56:00 Test Item Value Reference Range Comments Creatinine, Serum (test code = 2330) 0.640 mg/dL 0.76-1.27 BUN/Creatinine Ratio (test code = 2326) 19.000 8-19 AST (SGOT) (test code = 2323) 20.000 IU/L 0-40 Glucose, Serum (test code = 2334) 97.000 mg/dL 65-99 Carbon Dioxide, Total (test code = 2328) 21.000 mmol/L 20-32 ALT (SGPT) (test code = 2322) 30.000 IU/L 0-55 BUN (test code = 2325) 12.000 mg/dL 6-20 A/G Ratio (test code = 2319) 1.400 1.1-2.5 Albumin, Serum (test code = 2320) 4.100 g/dL 3.5-5.5 Chloride, Serum (test code = 2329) 101.000 mmol/L 97-108 Egfr If Africn Am (test code = 3068) 140.000 mL/min/1.73 >59 Globulin, Total (test code = 2333) 2.900 g/dL 1.5-4.5 Bilirubin, Total (test code = 2324) 0.400 mg/dL 0.0-1.2 Potassium, Serum (test code = 2335) 4.400 mmol/L 3.5-5.2 Alkaline Phosphatase, S (test code = 67.000 IU/L 25-150 2321) Sodium, Serum (test code = 2337) 140.000 mmol/L 135-145 Protein, Total, Serum (test code = 2336) 7.000 g/dL 6.0-8.5 eGFR If NonAfricn Am (test code = 2332) 121.000 mL/min/1.73 >59 Calcium, Serum (test code = 2327) 8.900 mg/dL 8.7-10.2 [id number] 09:56:00 Test Item Value Reference Range Comments TSH (test code = 2280) 1.860 uIU/mL 0.450-4.500 CBC ([id number]) [id number] 09:56:00 Test Item Value Reference Range Comments RBC (test code = 2367) 5.310 x10E6/uL 4.10-5.60 Lymphs (Absolute) (test code = 2357) 1.700 x10E3/uL 0.7-4.5 Baso (Absolute) (test code = 2346) 0.000 x10E3/uL 0.0-0.2 Neutrophils (Absolute) (test code = 2364) 4.500 x10E3/uL 1.8-7. 8 RDW (test code = 2368) 13.200 % 11.7-15.0 Hematocrit (test code = 2350) 45.800 % 36.0-50.0 MCH (test code = 2358) 29.000 pg 27.0-34.0 Immature Granulocytes (test code = 2355) 0.000 % 0-2 Lymphs (test code = 2356) 25.000 % 14-46 Eos (Absolute) (test code = 2349) 0.200 x10E3/uL 0.0-0.4 Neutrophils (test code = 2363) 67.000 % 40-74 MCHC (test code = 2359) 33.600 g/dL 32.0-36.0 Basos (test code = 2347) 0.000 % 0-3 Immature Grans (Abs) (test code = 2354) 0.000 x10E3/uL 0.0-0.1 Monocytes(Absolute) (test code = 2362) 0.400 x10E3/uL 0.1-1.0 Hemoglobin (test code = 2352) 15.400 g/dL 12.5-17.0 Eos (test code = 2348) 2.000 % 0-7 WBC (test code = 2369) 6.800 x10E3/uL 4.0-10.5 Platelets (test code = 2366) 270.000 x10E3/uL 140-415 MCV (test code = 2360) 86.000 fL 80-98 Monocytes (test code = 2361) 6.000 % 4-13 H. pylori IgG, [id number] 14:49:00 Test Item Value Reference Range Comments H. Pylori, Igg Abs 0.370 Index Value 0.0-0.7 Negative (test code = 3897) <0.80\X000d\\ X0A\ Equivocal 0.80 - 0.89\X000 d\\X0A\ Positive >0.89\X000 d\\X0A\ CMP14 ([id number]) [id number] 14:49:00 Test Item Value Reference Range Comments Egfr If Africn Am (test 129.000 mL/min/1.73 >59 code = 3068) BUN (test code = 2325) 12.000 mg/dL 6-20 AST (SGOT) (test code = 38.000 IU/L 0-40 3) Protein, Total, Serum 8.000 g/dL 6.0-8.5 (test code = 2336) Albumin, Serum (test code 4.500 g/dL 3.5-5.5 Plea se note reference = 2320) interval change\X000d\\ X0A\ Sodium, Serum (test code 136.000 mmol/L 135-145 = 2337) Alkaline Phosphatase, S 75.000 IU/L 25-150 (test code = 2321) Globulin, Total (test 3.500 g/dL 1.5-4.5 code = 2333) Chloride, Serum (test 98.000 mmol/L 97-108 code = 2329) Calcium, Serum (test code 9.400 mg/dL 8.7-10.2 = 2327) A/G Ratio (test code = 1.300 1.1-2.5 2319) Bilirubin, Total (test 0.400 mg/dL 0.0-1.2 code = 2324) Potassium, Serum (test 4.100 mmol/L 3.5-5.2 code = 2335) Creatinine, Serum (test 0.790 mg/dL 0.76-1.27 code = 2330) BUN/Creatinine Ratio 15.000 8-19 (test code = 2326) Glucose, Serum (test code 99.000 mg/dL 65-99 = 2334) ALT (SGPT) (test code = 40.000 IU/L 0-55 2322) eGFR If NonAfricn Am 112.000 mL/min/1.73 >59 (test code = 2332) Carbon Dioxide, Total 18.000 mmol/L 20-32 (test code = 2328) CBC ([id number]) [id number] 14:49:00 Test Item Value Reference Range Comments Eos (test code = 2348) 0.000 % 0-7 MCHC (test code = 2359) 34.100 g/dL 32.0-36.0 Lymphs (test code = 2356) 23.000 % 14-46 Immature Grans (Abs) (test code = 2354) 0.000 x10E3/uL 0.0-0.1 Monocytes(Absolute) (test code = 2362) 0.800 x10E3/uL 0.1-1.0 Platelets (test code = 2366) 270.000 x10E3/uL 140-415 Lymphs (Absolute) (test code = 2357) 1.400 x10E3/uL 0.7-4.5 Immature Granulocytes (test code = 2355) 0.000 % 0-2 MCH (test code = 2358) 28.100 pg 27.0-34.0 Monocytes (test code = 2361) 13.000 % 4-13 Neutrophils (test code = 2363) 63.000 % 40-74 RBC (test code = 2367) 6.040 x10E6/uL 4.10-5.60 Baso (Absolute) (test code = 2346) 0.000 x10E3/uL 0.0-0.2 Eos (Absolute) (test code = 2349) 0.000 x10E3/uL 0.0-0.4 WBC (test code = 2369) 6.300 x10E3/uL 4.0-10.5 MCV (test code = 2360) 83.000 fL 80-98 Hematocrit (test code = 2350) 49.800 % 36.0-50.0 RDW (test code = 2368) 13.600 % 11.7-15.0 Hemoglobin (test code = 2352) 17.000 g/dL 12.5-17.0 Neutrophils (Absolute) (test code = 2364) 4.000 x10E3/uL 1.8-7. 8 Basos (test code = 2347) 1.000 % 0-3 Ebv Antibody [id number] 14:49:00 Test Item Value Reference Range Comments Ebv Nuclear Antigen Ab, Igg 383.000 U/mL 0.0-17.9 Nega tive (test code = 4117) <18.0\X000d\\ X0A\ Equivocal 18.0 - 21.9\X000 d\\X0A\ Positive >21.9\X000d \\X0A\ [id number] 09:30:00 Test Item Value Reference Range Comments TSH (test code = 2280) 0.870 uIU/mL 0.450-4.500 CBC ([id number]) [id number] 13:33:00 Test Item Value Reference Range Comments Neutrophils (Absolute) (test code = 2364) 6.500 x10E3/uL 1.8-7. 8 Eos (Absolute) (test code = 2349) 0.100 x10E3/uL 0.0-0.4 Monocytes (test code = 2361) 7.000 % 4-13 Neutrophils (test code = 2363) 71.000 % 40-74 Immature Granulocytes (test code = 2355) 0.000 % 0-2 Eos (test code = 2348) 1.000 % 0-7 RDW (test code = 2368) 13.700 % 11.7-15.0 WBC (test code = 2369) 9.100 x10E3/uL 4.0-10.5 RBC (test code = 2367) 5.060 x10E6/uL 4.10-5.60 Hematocrit (test code = 2350) 43.200 % 36.0-50.0 Platelets (test code = 2366) 193.000 x10E3/uL 140-415 Monocytes(Absolute) (test code = 2362) 0.600 x10E3/uL 0.1-1.0 Lymphs (test code = 2356) 21.000 % 14-46 Baso (Absolute) (test code = 2346) 0.000 x10E3/uL 0.0-0.2 MCH (test code = 2358) 29.100 pg 27.0-34.0 MCHC (test code = 2359) 34.000 g/dL 32.0-36.0 MCV (test code = 2360) 85.000 fL 80-98 Lymphs (Absolute) (test code = 2357) 1.900 x10E3/uL 0.7-4.5 Immature Grans (Abs) (test code = 2354) 0.000 x10E3/uL 0.0-0.1 Hemoglobin (test code = 2352) 14.700 g/dL 12.5-17.0 Basos (test code = 2347) 0.000 % 0-3 CMP14 ([id number]) [id number] 13:33:00 Test Item Value Reference Range Comments Bilirubin, Total (test code = 2324) 0.300 mg/dL 0.0-1.2 BUN/Creatinine Ratio (test code = 2326) 13.000 8-19 Glucose, Serum (test code = 2334) 97.000 mg/dL 65-99 Alkaline Phosphatase, S (test code = 77.000 IU/L 25-150 1) Egfr If Africn Am (test code = 3068) 142.000 mL/min/1.73 >59 Chloride, Serum (test code = 2329) 101.000 mmol/L 97-108 Creatinine, Serum (test code = 2330) 0.630 mg/dL 0.76-1.27 BUN (test code = 2325) 8.000 mg/dL 6-20 Calcium, Serum (test code = 2327) 8.800 mg/dL 8.7-10.2 Sodium, Serum (test code = 2337) 139.000 mmol/L 135-145 Protein, Total, Serum (test code = 2336) 7.200 g/dL 6.0-8.5 eGFR If NonAfricn Am (test code = 2332) 122.000 mL/min/1.73 >59 ALT (SGPT) (test code = 2322) 35.000 IU/L 0-55 A/G Ratio (test code = 2319) 1.300 1.1-2.5 Albumin, Serum (test code = 2320) 4.000 g/dL 3.5-5.5 Carbon Dioxide, Total (test code = 2328) 21.000 mmol/L 20-32 AST (SGOT) (test code = 2323) 30.000 IU/L 0-40 Potassium, Serum (test code = 2335) 4.300 mmol/L 3.5-5.2 Globulin, Total (test code = 2333) 3.200 g/dL 1.5-4.5 Sedimentation [id number] 10:20:00 Test Item Value Reference Range Comments Sedimentation Rate-Westergren (test code = 32.000 mm/hr 0-39 2933) Sedimentation [id number] 15:31:00 Test Item Value Reference Range Comments Sedimentation Rate-Westergren (test code = 39.000 mm/hr 0-39 2933) [id number] 15:31:00 Test Item Value Reference Range Comments Anti-dna (ds) Ab Qn (test 1.000 IU/mL 0-9 Negati ve <5\X000d\\X0A\ code = 3961) Equivocal 5 - 9\X000d\\X0A\ Positive >9\X000d\\X0A\ [id number] 11:37:00 Test Item Value Reference Range Comments TSH (test code = 2280) 1.260 uIU/mL 0.450-4.500 Sedimentation [id number] 11:37:00 Test Item Value Reference Range Comments Sedimentation Rate-Mateoergren (test code = 28.000 mm/hr 0-39 2933) Creatine Kinase,Total,Serum ([id number])2017-07-09 12:17:00 Test Item Value Reference Range Comments Creatine Kinase,Total,Serum (test code = 2283) 394.000 U/L 2 4-204 Lipid [id number] 12:17:00 Test Item Value Reference Range Comments LDL Cholesterol Calc (test code = 2502) 100.000 mg/dL 0-99 Triglycerides (test code = 2503) 109.000 mg/dL 0-149 HDL Cholesterol (test code = 2501) 38.000 mg/dL >39 Cholesterol, Total (test code = 2500) 160.000 mg/dL 100-199 VLDL Cholesterol Dino (test code = 2504) 22.000 mg/dL 5-40 Assessments Condition Name Status Diagnosis Date Treating Clinici an Muscle weakness Active 2020-02-04 10:53:12 Antalgic gait Active 2020-02-04 10:53:12 Stiffness of left knee Active 2020-02-04 10:53:12 Sprain of anterior cruciate ligament of Active 10:53:12 knee Impairment of balance Active 2020-02-04 10:53:12 Sprain of anterior cruciate ligament of Active 15:33:23 knee Pain in left knee Active 2020-02-03 15:33:25 Stiffness of left knee Active 2020-02-03 15:33:27 Deep venous thrombosis of lower Active 2020-02-04 15:37 :09 extremity Pain of left calf Active 2020-02-04 15:43:06 Muscle weakness Active 2020-01-22 07:53:58 Antalgic gait Active 2020-01-22 07:53:58 Stiffness of left knee Active 2020-01-22 07:53:58 Sprain of anterior cruciate ligament of Active 07:53:58 knee Impairment of balance Active 2020-01-22 07:53:58 Muscle weakness Active 2020-01-19 07:17:23 Antalgic gait Active 2020-01-19 07:17:23 Stiffness of left knee Active 2020-01-19 07:17:23 Sprain of anterior cruciate ligament of Active 07:17:23 knee Impairment of balance Active 2020-01-19 07:17:23 Muscle weakness Active 2020-01-15 07:33:14 Antalgic gait Active 2020-01-15 07:33:14 Stiffness of left knee Active 2020-01-15 07:33:14 Sprain of anterior cruciate ligament of Active 07:33:14 knee Impairment of balance Active 2020-01-15 07:33:14 Muscle weakness Active 2020-01-08 07:58:05 Antalgic gait Active 2020-01-08 07:58:05 Stiffness of left knee Active 2020-01-08 07:58:05 Sprain of anterior cruciate ligament of Active 07:58:05 knee Impairment of balance Active 2020-01-08 07:58:05 Pain in left knee Active 2020-01-07 10:37:14 Sprain of anterior cruciate ligament of Active 10:37:15 knee Stiffness of left knee Active 2020-01-06 07:48:59 Muscle weakness Active 2020-01-06 07:48:59 Impairment of balance Active 2020-01-06 07:48:59 Antalgic gait Active 2020-01-06 07:48:59 Sprain of anterior cruciate ligament of Active 13:13:24 knee Stiffness of left knee Active 2020-01-04 13:13:24 Muscle weakness Active 2020-01-04 13:13:24 Impairment of balance Active 2020-01-04 13:13:24 Antalgic gait Active 2020-01-04 13:13:24 Sprain of anterior cruciate ligament of Active 13:47:57 knee Stiffness of left knee Active 2019-12-29 13:47:57 Muscle weakness Active 2019-12-29 13:47:57 Impairment of balance Active 2019-12-29 13:47:57 Antalgic gait Active 2019-12-29 13:47:57 Sprain of anterior cruciate ligament of Active 08:14:03 knee Stiffness of left knee Active 2019-12-24 08:14:03 Muscle weakness Active 2019-12-24 08:14:03 Impairment of balance Active 2019-12-24 08:14:03 Antalgic gait Active 2019-12-24 08:14:03 Sprain of anterior cruciate ligament of Active 07:33:14 knee Stiffness of left knee Active 2019-12-22 07:33:14 Muscle weakness Active 2019-12-22 07:33:14 Impairment of balance Active 2019-12-22 07:33:14 Antalgic gait Active 2019-12-22 07:33:14 Sprain of anterior cruciate ligament of Active 12:45:47 knee Stiffness of left knee Active 2019-12-15 12:46:05 Muscle weakness Active 2019-12-15 12:46:16 Impairment of balance Active 2019-12-15 12:46:34 Antalgic gait Active 2019-12-15 12:46:35 Postoperative care Active 2019-12-10 10:49:55 Pain in left knee Active 2019-12-10 10:50:01 Sprain of anterior cruciate ligament of Active 10:50:01 knee Tear of lateral meniscus of knee Active 2019-12-10 10:5 0:01 Pain in left knee Active 2019-11-12 09:05:00 Sprain of anterior cruciate ligament of Active 09:42:36 knee Tear of lateral meniscus of knee Active 2019-11-12 09:4 3:15 Pain in left knee Active 2019-10-26 10:33:13 Sprain of anterior cruciate ligament of Active 16:19:00 knee Acute sinusitis, unspecified Active Acute bronchitis, unspecified Active Acute nasopharyngitis [common cold] Active Acute Pharyngitis Active Heartburn Active Otitis media, unspecified, bilateral Active Heartburn Active Acute pharyngitis, unspecified Active Diarrhea, unspecified Active Acute pharyngitis, unspecified Active Heartburn Active Diarrhea, unspecified Active Otitis media, unspecified, bilateral Active Low back pain Active Body mass index (BMI) 40.0-44.9, adult Active Insomnia, unspecified Active Body mass index (BMI) 40.0-44.9, adult Active Insomnia, unspecified Active Low back pain Active Body mass index (BMI) 40.0-44.9, adult Active Insomnia, unspecified Active Low back pain Active Gastroenteritis Active Dizziness and Giddiness vertigo Active Monitor Meds Active Gastroenteritis Active Dizziness and Giddiness vertigo Active Monitor Meds Active Gastroenteritis Active Dizziness and Giddiness vertigo Active Monitor Meds Active Localized edema Active Pain in left ankle and joints of left Active foot Localized edema Active Pain in left ankle and joints of left Active foot Localized edema Active Pain in left ankle and joints of left Active foot Acute Stress Reaction Not Elsewhere Active Classified Acute Stress Reaction Not Elsewhere Active Classified Acute Stress Reaction Not Elsewhere Active Classified Hyperglycemia Active Dietary Surveillance and Counseling Active BMI 50.0-59.9, ADULT Active Morbid Obesity Active MALAISE AND FATIGUE NEC Active Prediabetes Active Dietary counseling and surveillance Active Body mass index (BMI) 50-59.9, adult Active Hyperglycemia Active Dietary Surveillance and Counseling Active BMI 50.0-59.9, ADULT Active Morbid Obesity Active MALAISE AND FATIGUE NEC Active Dietary counseling and surveillance Active Prediabetes Active Body mass index (BMI) 50-59.9, adult Active Hyperglycemia Active Dietary Surveillance and Counseling Active BMI 50.0-59.9, ADULT Active Morbid Obesity Active MALAISE AND FATIGUE NEC Active Prediabetes Active Dietary counseling and surveillance Active Body mass index (BMI) 50-59.9, adult Active BMI 50.0-59.9, ADULT Active Morbid Obesity Active MALAISE AND FATIGUE NEC Active Prediabetes Active Dietary counseling and surveillance Active Body mass index (BMI) 50-59.9, adult Active Hyperglycemia Active Dietary Surveillance and Counseling Active Other fatigue Active Other fatigue Active Other fatigue Active Other fatigue Active Encounter for screening for other Active metabolic disorders Encounter for screening for other Active metabolic disorders Encounter for screening for other Active metabolic disorders Encounter for screening for other Active metabolic disorders Dizziness and giddiness Active Noninfective gastroenteritis and Active colitis, unspecified senior care (current) use of opiate Active analgesic Dizziness and giddiness Active Noninfective gastroenteritis and Active colitis, unspecified 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 Dizziness and giddiness Active Noninfective gastroenteritis and Active colitis, unspecified senior care (current) use of opiate Active analgesic Dizziness and giddiness Active Noninfective gastroenteritis and Active colitis, unspecified senior care (current) use of opiate Active analgesic Gastro-esophageal reflux disease Active without esophagitis Essential (primary) hypertension Active Body mass index (BMI) 37.0-37.9, adult Active Gastro-esophageal reflux disease Active without esophagitis Essential (primary) hypertension Active Body mass index (BMI) 37.0-37.9, adult Active Gastro-esophageal reflux disease Active without esophagitis Essential (primary) hypertension Active Body mass index (BMI) 37.0-37.9, adult Active Gastro-esophageal reflux disease Active without esophagitis Essential (primary) hypertension Active Body mass index (BMI) 37.0-37.9, adult Active Sprain of unspecified ligament of left Active ankle, initial encounter Sprain of unspecified ligament of left Active ankle, initial encounter Sprain of unspecified ligament of left Active ankle, initial encounter Sprain of unspecified ligament of left Active ankle, initial encounter Unspecified Major Depression, Single Active Episode Major depressive disorder, single Active episode, unspecified Unspecified Major Depression, Single Active Episode Major depressive disorder, single Active episode, unspecified Unspecified Major Depression, Single Active Episode Major depressive disorder, single Active episode, unspecified Major depressive disorder, single Active episode, unspecified Unspecified Major Depression, Single Active Episode Polyarthritis or Polyarthropathy Not Active Otherwise Specified of Site Unspecified Polyarthritis or Polyarthropathy Not Active Otherwise Specified of Site Unspecified Polyarthritis or Polyarthropathy Not Active Otherwise Specified of Site Unspecified Polyarthritis or Polyarthropathy Not Active Otherwise Specified of Site Unspecified Inflammatory Polyarthropathy Not Active Otherwise Specified 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 Not Active Otherwise Specified 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 Not Active Otherwise Specified Inflammatory polyarthropathy Active 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 Not Active Otherwise Specified Generalized anxiety disorder Active Other custodial (current) drug therapy Active Person consulting for explanation of Active examination or test findings Morbid (severe) obesity due to excess Active calories Polymyalgia rheumatica Active Body mass index (BMI) 45.0-49.9, adult Active Generalized anxiety disorder Active Major depressive disorder, recurrent, Active unspecified Other custodial (current) drug therapy Active Person consulting for explanation of Active examination or test findings Morbid (severe) obesity due to excess Active calories Polymyalgia rheumatica Active Body mass index (BMI) 45.0-49.9, adult Active Generalized anxiety disorder Active Major depressive disorder, recurrent, Active unspecified 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 Person consulting for explanation of Active examination or test findings Polymyalgia rheumatica Active Morbid (severe) obesity due to excess Active calories Body mass index (BMI) 45.0-49.9, adult Active Generalized anxiety disorder Active Major depressive disorder, recurrent, Active unspecified Other custodial (current) drug therapy Active Person consulting for explanation of Active examination or test findings Polymyalgia rheumatica Active Morbid (severe) obesity due to excess Active calories Body mass index (BMI) 45.0-49.9, adult Active Generalized anxiety disorder Active Major depressive disorder, recurrent, Active unspecified Other custodial (current) drug therapy Active Person consulting for explanation of Active examination or test findings Elevated erythrocyte sedimentation rate Active Elevated erythrocyte sedimentation rate Active Elevated erythrocyte sedimentation rate Active Elevated erythrocyte sedimentation rate Active Elevated erythrocyte sedimentation rate Active Elevated erythrocyte sedimentation rate Active Polyarthritis, unspecified Active Polyarthritis, unspecified Active Polyarthritis, unspecified Active Polyarthritis, unspecified Active Polyarthritis, unspecified Active Polyarthritis, unspecified Active Polymyalgia rheumatica Active Morbid (severe) obesity due to excess Active calories Body mass index (BMI) 45.0-49.9, adult Active 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 Active Z79.899 Active Z71.2 Active Anxiety State Not Otherwise Specified Active Anxiety disorder, unspecified Active Acute stress reaction Active Anxiety State Not Otherwise Specified Active Acute stress reaction Active Anxiety disorder, unspecified Active Anxiety State Not Otherwise Specified Active Acute stress reaction Active Anxiety disorder, unspecified Active Acute stress reaction Active Anxiety disorder, unspecified Active Anxiety State Not Otherwise Specified Active Chest Pain Not Otherwise Specified Active Chest Pain Not Otherwise Specified Active Chest Pain Not Otherwise Specified Active Chest Pain Not Otherwise Specified Active No Known Medical Problem-General Active Medical Exam Other abnormal glucose Active Encounter for general adult medical Active examination without abnormal findings Obesity, unspecified Active No Known Medical Problem-General Active Medical Exam Other abnormal glucose Active Encounter for general adult medical Active examination without abnormal findings Obesity, unspecified Active No Known Medical Problem-General Active Medical Exam Other abnormal glucose Active Encounter for general adult medical Active examination without abnormal findings Obesity, unspecified Active No Known Medical Problem-General Active Medical Exam Other abnormal glucose Active Encounter for general adult medical Active examination without abnormal findings Obesity, unspecified Active Other amnesia Active Chest pain, unspecified Active Chest pain, unspecified Active Chest pain, unspecified Active Other amnesia Active Chest pain, unspecified Active Other amnesia Active Chest pain, unspecified Active Other amnesia Active Chest pain, unspecified Active Other amnesia Active R73.09 Active Encounter for general adult medical Active examination without abnormal findings Obesity, unspecified Active Encounters Start End Encounter Admission Attending Care Care Encounter Date/Time Date/Time Type Type Clinicians Facility Department ID 2020-02-05 2020-02-05 Leticia Parra [id number] 00:00:00 00:00:00 Seo, Surgical Surgical [id number] DPT: [address], [place] [address], Ph. 2020-02-04 2020-02-04 Jose Wong [place] [id number] 00:00:00 00:00:00 Ke, Surgical Surgical [id number] PAC: [address] [facility], [place] [address], Ph. 2020-01-25 2020-01-25 Leticia Lyncht [place] [id number] 00:00:00 00:00:00 Seo, Surgical Surgical [id number] DPT: [address], [place] [address], Ph. 2020-01-20 2020-01-20 Leticia Lyncht [place] [id number] 00:00:00 00:00:00 Seo, Surgical Surgical [id number] DPT: [address], [place] [address], Ph. 2020-01-18 2020-01-18 Leticia Lyncht [place] [id number] 00:00:00 00:00:00 Seo, Surgical Surgical [id number] DPT: [address], [place] [address], Ph. 2020-01-11 2020-01-11 Leticia Schofield [place] [id number] 00:00:00 00:00:00 Seo, Surgical Surgical [id number] DPT: [address], [place] [address], Ph. 2020-01-07 2020-01-07 Gerard Parra [place] [id number] 00:00:00 00:00:00 MD Diomedes: Surgical Surgical [id number] [address] [facility] [facility], [place] [address], Ph. 2020-01-04 2020-01-04 Leticia Parra [place] [id number] 2_ 00:00:00 00:00:00 Seo, Surgical Surgical [id number] DPT: [address] [facility], [place] [address], Ph. 2019-12-30 2019-12-30 Leticia Parra [place] [id number] 2_ 00:00:00 00:00:00 Seo, Surgical Surgical [id number] DPT: [address] [facility] [address], [place] [address], Ph. 2019-12-25 2019-12-25 Leticia Parra [place] [id number] 2_ 00:00:00 00:00:00 Seo, Surgical Surgical [id number] DPT: [address] [facility] [address], [place] [address], Ph. 2019-12-23 2019-12-23 Leticia Parra [place] [id number] 2_ 00:00:00 00:00:00 Seo, Surgical Surgical [id number] DPT: [address] [facility] [address], [place] [address], Ph. 2019-12-15 2019-12-15 Leticia Parra [place] [id number] 2 00:00:00 00:00:00 Seo, Surgical Surgical [id number] DPT: [address], [place] [address], Ph. 2019-12-10 2019-12-10 Gerard Lyncht [place] [id number]_ 00:00:00 00:00:00 MD Diomedes: Surgical Surgical [id number] [address] [facility], [address], [place] [address], Ph. 2019-11-12 2019-11-12 Gerard Franklineret [place] [id number]_ 202 00:00:00 00:00:00 MD Diomedes: Surgical Surgical [id number] [address] [facility], [address], [place] [address], Ph. 2019-10-26 2019-10-26 Reece Trino Parra [id number]_ 202 00:00:00 00:00:00 Crispin, Surgical Surgical [id number] DO: [address] [facility], [place] [address], Ph. 2019-07-08 2019-07-08 Outpatient Carla, [facility] [id number] 00:00:00 00:00:00 [facility] 2019-05-11 2019-05-11 Outpatient [facility] [place] [id number] 00:00:00 00:00:00 Medical 2019-04-13 2019-04-13 [place], [facility] [place] [id number] 00:00:00 00:00:00 [facility] 2018-11-20 2018-11-20 [place], [facility] [place] [id number] 00:00:00 00:00:00 [facility] 2018-01-17 2018-01-17 Outpatient Carla, [facility] [id number] 00:00:00 00:00:00 [facility] 2018-01-06 2018-01-06 [place], [facility] [id number] 00:00:00 00:00:00 [facility] 2017-07-09 2017-07-09 [place], [facility] [place] [id number] 00:00:00 00:00:00 [facility] Plan of Treatment Planned Activity Planned Date Details Comments Future Appointment 2020-02-23 10:30:[address] , [place] [address] Future Appointment 2020-02-16 09:30:[address] , [place] [address] Future Appointment 2020-02-12 10:00:[address] , [place] [address] Future Appointment 2020-02-10 08:30:[address] , [place] [address] Social History Smoking Status Start Date Stop Date Former Smoker Current Every Day Smoker Vital Signs Vital Name Observation Time Observation Value Comments Height 2020-01-07 00:00:00 72 [in_i] BMI (Body Mass Index) 2020-01-07 00:00:00 48.1 kg/m2 Body Weight 2020-01-07 00:00:00 355 [lb_av] Height 2019-12-10 00:00:00 72 [in_i] Height 2019-11-12 00:00:00 72 [in_i] BMI (Body Mass Index) 2019-11-12 00:00:00 46.1 kg/m2 Body Weight 2019-11-12 00:00:00 340 [lb_av] Height 2019-10-26 00:00:00 72 [in_i] BMI (Body Mass Index) 2019-10-26 00:00:00 46.1 kg/m2 Body Weight 2019-10-26 00:00:00 340 [lb_av] Hospital Discharge Instructions 1. Pain in left knee MRI, knee, w/o contrast [place] 5 mg-325 mg tablet 2. Sprain of anterior cruciate ligament of knee anterior cruciate ligament (ACL) tear: care instructions Discussion Note: None recorded.
== END ==
LOC: SP 16:44
PROVIDERS: ATTEND Physician Assistant
DX: M79.662 Pain in left lower leg (principal)
CPT/HCPCS: 93971